=== PATIENT | female | born 1995 | race African-American/Black ===

== ENCOUNTER 2018-01-17 09:28 | Emergency (ER) | payer BC ==
[~2018-01-17] VITALS: Ht 170.2 cm; Wt 72.6 kg
[2018-01-17] MEDS ORDERED: PHENTERMINE H37.5 MG PO (09:36)
[2018-01-17 09:49] VITALS: BP 120/76
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
== END 2018-01-17 09:57 | disposition home or self-care (01) ==
LOC: EMR 09:55
DX: M25.562 Pain in left knee (principal); M25.511 Pain in right shoulder; V29.88XA Motorcycle rider (driver) (passenger) injured in other specified transport accidents, initial encounter; Y93.I9 Activity, other involving external motion; Y92.410 Unspecified street and highway as the place of occurrence of the external cause
CPT/HCPCS: 99282